=== PATIENT | female | born 2000 | race Caucasian/White ===

== ENCOUNTER → 2022-05-10 01:19 | Outpatient (CLI) | payer OTHER, SELFPAY ==
[2022-05-10 13:23] LABS: SARS-CoV-2 RNA PCR Negative
== END ==
DX: R68.89 Other general symptoms and signs (principal); Z20.822 Contact with and (suspected) exposure to COVID-19
CPT/HCPCS: C9803; U0003; U0005

== ENCOUNTER 2023-08-17 11:35 | Outpatient (CLI) | payer OTHER, SELFPAY ==
[2023-08-17 13:00] LABS: Basophils Percent Auto 0.4 % (0.2-1.2); Eosinophils Absolute Auto 0.1 K/mm3 (0-0.3); Eosinophils Percent Auto 1.7 % (0-4.4); Hematocrit 41.3 % (37.0-47.0); Hemoglobin 13.9 g/dL (12.0-15.0); Immature Granulocyte Absolute 0.01 K/mm3 (0.00-0.031); Immature Granulocyte Percent A 0.2 % (0-0.5); Lymphocytes Absolute Auto 1.58 K/mm3 (0.9-3.2); Lymphocytes Percent Auto 29.3 % (18.3-44.2); Mean Corpuscular HGB Conc 33.7 g/dl (32-36); Mean Corpuscular Hemoglobin 29.7 pg (26-34); Mean Corpuscular Volume 88.2 fl (80-100); Mean Platelet Volume 11.6 fl (7.4-10.4); Monocytes Absolute Auto 0.3 K/mm3 (0.1-0.6); Monocytes Percent Auto 6.1 % (2.6-8.5); Neutrophils Absolute Auto 3.4 K/mm3 (1.3-6.7); Neutrophils Percent Auto 62.3 % (45.5-73.1); Platelet Count Result 222 k/mm3 (150-375); Red Blood Count 4.68 M/mm3 (4.2-5.4); Red Cell Distribution Width 11.9 % (11.5-14.5); White Blood Count 5.4 K/mm3 (4.5-10.0)
[2023-08-17 13:12] LABS: Alanine Aminotransferase 13 U/L (6-35); Albumin Level 4.7 g/dL (3.5-5.1); Alkaline Phosphatase 65 U/L (38-126); Anion Gap 7 mmol/L (8-16); Aspartate Amino Transferase 22 U/L (14-36); Bilirubin,Total 0.6 mg/dL (0.2-1.3); Blood Urea Nitrogen 19 mg/dL (7-17); Carbon Dioxide 27 mmol/L (22-30); Chloride 102 mmol/L (98-107); Cholesterol 181 mg/dL (0-200); Estimated Glomerular Filt Rate > 60; Glucose 79 mg/dL (65-110); HDL Direct 59 mg/dL; Potassium 4.3 mmol/L (3.4-5.0); Sodium 136 mmol/L (137-145); Triglycerides 59 mg/dL (<150)
[2023-08-17 13:22] LABS: LDL Cholesterol Direct 93 mg/dL
[2023-08-17 13:48] LABS: Thyroid Stimulating Hormone Reflex 0.443 uIU/mL (0.465-4.68)
[2023-08-17 19:06] LABS: Free T4 Free Thyroxine Reflex 1.23 ng/dL (0.78-2.19)
[2023-08-17 20:01] LABS: Total Triiodothyronine (T3) 1.24 NG/ML (0.97-1.69)
== END 2023-08-17 11:36 | disposition home or self-care (01) ==
PROVIDERS: PCP Nurse Practitioner; Visit Provider Nurse Practitioner
DX: Z13.29 Encounter for screening for other suspected endocrine disorder (principal); Z13.228 Encounter for screening for other metabolic disorders; Z13.0 Encounter for screening for diseases of the blood and blood-forming organs and certain disorders involving the immune mechanism; Z13.220 Encounter for screening for lipoid disorders
CPT/HCPCS: 36415; 80053; 80061; 84439; 84443; 84480; 85025

== ENCOUNTER 2023-11-24 10:36 | Outpatient (CLI) | payer OTHER, SELFPAY ==
[2023-11-24 11:52] LABS: Thyroid Stimulating Hormone Reflex 0.334 uIU/mL (0.465-4.68)
[2023-11-24 12:34] LABS: Free T4 Free Thyroxine Reflex 1.19 ng/dL (0.78-2.19)
[2023-11-24 14:02] LABS: Total Triiodothyronine (T3) 1.27 NG/ML (0.97-1.69)
[2023-11-27 05:04] LABS: Thyroid Peroxidase Antibodies <1 IU/mL (<9)
== END 2023-11-24 10:37 | disposition home or self-care (01) ==
LOC: ANHLAB 10:39
PROVIDERS: PCP Nurse Practitioner; Visit Provider Nurse Practitioner
DX: R94.6 Abnormal results of thyroid function studies (principal)
CPT/HCPCS: 36415; 84439; 84443; 84480; 86376

== ENCOUNTER 2023-12-04 10:55 | Outpatient (CLI) | payer OTHER, SELFPAY ==
--- NOTE | ~2023-12-04 | US_ITS ---
Thyroid ultrasound. Clinical History: Subclinical hyperthyroidism Findings: Real-time sonography of the thyroid gland was performed. The right lobe measures 5.1 x 1.6 x 1.9 cm. The left lobe measures 5.1 x 1.2 x 1.8 cm. The isthmus is 4 mm in AP diameter. There are several scattered cystic nodules bilaterally, largest at the left lower pole measuring 8 mm in maximum diameter. Impression: Subcentimeter cystic nodules bilaterally, benign.. Reviewed, dictated and finalized at location M. ETING INSTRUCTOR Impression: Subcentimeter cystic nodules bilaterally, benign..
== END 2023-12-04 10:56 | disposition home or self-care (01) ==
PROVIDERS: PCP Nurse Practitioner; Visit Provider Nurse Practitioner
DX: E04.2 Nontoxic multinodular goiter (principal); E05.90 Thyrotoxicosis, unspecified without thyrotoxic crisis or storm
CPT/HCPCS: 76536

== ENCOUNTER 2023-12-05 10:19 | Outpatient (CLI) | payer OTHER, SELFPAY ==
[2023-12-07 04:01] LABS: Thyroglobulin 19.5 ng/mL (2.8-40.9); Thyroglobulin Antibodies <1 IU/mL (<=1)
[2023-12-07 12:57] LABS: Thyrotropin Receptor Antibody <1.00 IU/L (<=2.00)
[2023-12-08 15:55] LABS: Thyroxin Binding Globulin 19.8 mcg/mL (13.5-30.9)
== END 2023-12-05 10:20 | disposition home or self-care (01) ==
LOC: ANHLAB 10:23
PROVIDERS: PCP Nurse Practitioner; Visit Provider Nurse Practitioner
DX: E05.90 Thyrotoxicosis, unspecified without thyrotoxic crisis or storm (principal)
CPT/HCPCS: 36415; 83519; 84432; 84442; 86800

== ENCOUNTER 2024-03-25 11:37 | Outpatient (CLI) | payer OTHER, SELFPAY ==
[2024-03-25 13:06] LABS: Thyroid Stimulating Hormone 0.962 uIU/mL (0.465-4.680)
[2024-03-25 13:12] LABS: Free T4 Free Thyroxine 1.23 ng/mL (0.78-2.19)
[2024-03-26 10:43] LABS: Triiodothyronine T3 Free 3.2 pg/mL (2.3-4.2)
== END 2024-03-25 11:38 | disposition home or self-care (01) ==
PROVIDERS: PCP Nurse Practitioner; Visit Provider Nurse Practitioner
DX: E05.90 Thyrotoxicosis, unspecified without thyrotoxic crisis or storm (principal)
CPT/HCPCS: 36415; 84439; 84443; 84481

== ENCOUNTER 2024-05-22 14:36 | Outpatient (CLI) | payer OTHER, SELFPAY ==
[2024-05-22 15:25] LABS: Basophils Percent Auto 0.4 % (0.2-1.2); Eosinophils Absolute Auto 0.1 K/mm3 (0-0.3); Eosinophils Percent Auto 2.5 % (0-4.4); Hematocrit 37.5 % (37.0-47.0); Hemoglobin 13.2 g/dL (12.0-15.0); Immature Granulocyte Absolute 0.01 K/mm3 (0.00-0.031); Immature Granulocyte Percent A 0.2 % (0-0.5); Lymphocytes Absolute Auto 2.03 K/mm3 (0.9-3.2); Lymphocytes Percent Auto 39.8 % (18.3-44.2); Mean Corpuscular HGB Conc 35.2 g/dl (32-36); Mean Corpuscular Hemoglobin 30.2 pg (26-34); Mean Corpuscular Volume 85.8 fl (80-100); Mean Platelet Volume 11.4 fl (7.4-10.4); Monocytes Absolute Auto 0.3 K/mm3 (0.1-0.6); Monocytes Percent Auto 5.3 % (2.6-8.5); Neutrophils Absolute Auto 2.6 K/mm3 (1.3-6.7); Neutrophils Percent Auto 51.8 % (45.5-73.1); Platelet Count Result 233 k/mm3 (150-375); Red Blood Count 4.37 M/mm3 (4.2-5.4); Red Cell Distribution Width 12.3 % (11.5-14.5); White Blood Count 5.1 K/mm3 (4.5-10.0)
[2024-05-22 15:37] LABS: Alanine Aminotransferase 11 U/L (6-35); Albumin Level 4.6 g/dL (3.5-5.1); Alkaline Phosphatase 59 U/L (38-126); Anion Gap 8 mmol/L (4-12); Aspartate Amino Transferase 20 U/L (14-36); Bilirubin,Total 0.7 mg/dL (0.2-1.3); Blood Urea Nitrogen 12 mg/dL (7-17); Calcium 9.4 mg/dL (8.4-10.2); Carbon Dioxide 28 mmol/L (22-30); Chloride 103 mmol/L (98-107); Cholesterol 150 mg/dL (0-200); Estimated Glomerular Filt Rate > 60; Glucose 100 mg/dL (65-110); HDL Direct 54 mg/dL; Potassium 4.3 mmol/L (3.4-5.0); Sodium 139 mmol/L (137-145); Triglycerides 79 mg/dL (<150)
[2024-05-22 15:47] LABS: LDL Cholesterol Direct 85 mg/dL
[2024-05-22 16:26] LABS: Thyroid Stimulating Hormone Reflex 0.702 uIU/mL (0.465-4.68)
== END 2024-05-22 14:37 | disposition home or self-care (01) ==
LOC: ANHLAB 14:38
PROVIDERS: PCP Nurse Practitioner; Visit Provider Nurse Practitioner
DX: Z13.220 Encounter for screening for lipoid disorders (principal); Z13.29 Encounter for screening for other suspected endocrine disorder; Z13.0 Encounter for screening for diseases of the blood and blood-forming organs and certain disorders involving the immune mechanism
CPT/HCPCS: 36415; 80053; 80061; 84443; 85025

== ENCOUNTER 2024-07-02 14:19 | Outpatient (CLI) | payer OTHER, MEDICAID, SELFPAY ==
--- NOTE | ~2024-07-02 | NM_ITS ---
EXAMINATION: NM thyroid scan w uptake DATE: 07/03/2024 14:53 INDICATION: Subclinical hyperthyroidism. COMPARISON: Thyroid ultrasound 12/04/2023 TECHNIQUE: 0.344 mCi I-123 was administered orally. Scintigraphic images of the thyroid gland were o btained at 24 hours. Thyroid uptake was calculated by the technologist. FINDINGS: The thyroid uptake is 29% (normal 10-30%), with the right lobe measuring 16% uptake and the left 14%. There is no focal area of decreased or increased activity to suggest hypofunctioning or hyperfunctio kisha nodule. IMPRESSION: 1. Normal thyroid scintigraphy and 24-hour iodine uptake. Reviewed, dictated and finalized at location A.
[2024-07-04 07:58] LABS: Thyroid Peroxidase Antibodies <1 IU/mL (<9)
[2024-07-09 07:39] LABS: Thyroid Stimulating Immunoglob <89%
[2024-07-10 07:17] LABS: Thyrotropin Receptor Antibody <1.00
== END 2024-07-02 14:20 | disposition home or self-care (01) ==
LOC: ANHIMG 14:21
PROVIDERS: PCP Nurse Practitioner; Visit Provider Internal Medicine
DX: R79.89 Other specified abnormal findings of blood chemistry (principal); I49.9 Cardiac arrhythmia, unspecified; F32.A Depression, unspecified; F41.9 Anxiety disorder, unspecified
CPT/HCPCS: 36415; 78014; 83519; 84445; 86376; 86800; A9516

== ENCOUNTER 2024-08-02 09:09 | Outpatient (CLI) | payer OTHER, SELFPAY ==
--- NOTE | ~2024-08-02 | CT_ITS ---
EXAMINATION: CT thoracic lumbar wo con DATE: 08/02/2024 09:34 INDICATION: Congenital scoliosis. TECHNIQUE: Computed tomography (CT) of the thoracic and lumbar spine was performed without intravenou s contrast. Automated exposure control and iterative reconstruction technique were employed. The dose -length product was 731.84 mGy-cm. COMPARISON: spine CT 10/07/2014 FINDINGS: CT THORACIC SPINE: There is 38 degrees levoscoliosis of thoracolumbar spine. There is mild chronic an terior wedging of T7-T9 vertebral bodies. There is severely decreased disc height at T11-T12. There a re changes of posterior fusion procedure from T12 to L4. There are lucencies around the left T12 scre w and the left L4 screw. There is multilevel mild facet joint osteoarthritis. At T11-T12, there is se rodrigo bilateral facet joint osteoarthritis. There is mild bilateral neural foraminal stenosis at T11-T 12. There is mild central canal stenosis at T11-T12. CT LUMBAR SPINE: Vertebral body heights are normal. There is mildly decreased disc height at L1-L2 an d moderately decreased disc height at L2-L3. The following disc levels are specifically discussed: L1-L2: The disc does not extend beyond the endplate margin. There is no facet joint hypertrophy. Ther e is no neural foraminal stenosis. There is no central canal stenosis. L2-L3: The disc does not extend beyond the endplate margin. There is no facet joint hypertrophy. Ther e is no neural foraminal stenosis. There is no central canal stenosis. L3-L4: The disc does not extend beyond the endplate margin. There is severe bilateral facet joint ost eoarthritis. There is mild left neural foraminal stenosis. There is no central canal stenosis. L4-L5: The disc is bulging. There is mild bilateral facet joint osteoarthritis. There is mild bilater al neural foraminal stenosis. There is no central canal stenosis. L5-S1: The disc is bulging. There is severe bilateral facet joint osteoarthritis. There is mild bilat eral neural foraminal stenosis. There is mild central canal stenosis. IMPRESSION: 1. Posterior fusion procedure from T12 to L4 with lucencies around the left T12 screw and left L4 scr ew, consistent with loosening. 2. Thoracolumbar levoscoliosis. 3. Severe spondylosis at T11-T12 and mild spondylosis at other levels. Reviewed, dictated and finalized at location A. IMPRESSION: 1. Posterior fusion procedure from T12 to L4 with lucencies around the left T12 screw and left L4 screw, consistent with loosening. 2. Thoracolumbar levoscoliosis. 3. Severe spondylosis at T11-T12 and mild spondylosis at other levels.
== END 2024-08-02 09:10 | disposition home or self-care (01) ==
PROVIDERS: PCP Nurse Practitioner; Visit Provider Nurse Practitioner
DX: M41.85 Other forms of scoliosis, thoracolumbar region (principal); M43.04 Spondylolysis, thoracic region; G89.29 Other chronic pain; Z98.1 Arthrodesis status
CPT/HCPCS: 72128; 72131

== ENCOUNTER 2024-08-14 10:47 | Outpatient (CLI) | payer OTHER, SELFPAY ==
--- NOTE | ~2024-08-14 | CT_ITS ---
EXAMINATION: CT thoracic lumbar wo con DATE: 08/14/2024 11:07 INDICATION: Congenital scoliosis post fall TECHNIQUE: Computed tomography (CT) of the thoracic and lumbar spine was performed without intravenou s contrast. Automated exposure control and iterative reconstruction technique were employed. The dose -length product was 830.58 mGy-cm. COMPARISON: 08/02/2024 FINDINGS: Thoracic spine: 25 degree lower thoracic dextroscoliosis sagittal alignment is normal. Unchanged minimal anterior wed ging at T7 and T8. No acute fractures. Mild left anterior vertebral body height loss at T11 and T12. Moderate anterior disc height loss with degenerative endplate changes at T11-T12. No central canal or neural foraminal stenosis. Severe facet osteoarthritis with mild neural foraminal stenosis on the le ft at T11-T12. Moderate facet osteoarthritis on the right at T11-T12 and on the left at T10-T11. Mild facet osteoarthritis at majority the remaining thoracic levels. No other significant neural foramina l stenosis. Visualized portions of the lungs are clear. Paravertebral soft tissues are unremarkable. Lumbar spine: 40 degrees levoscoliosis measured between L1 and L4. Sagittal alignment is normal. No acute fracture. Partial T11 laminectomy and laminectomies at T12, L1 and L2 with T12-L4 posterior spinal fusion with bilateral vertical iker and pedicle screw fixation at each level with the exception of L2. Unchanged mild lucency surrounding the left T12 and left L4 screws. Vertebral body heights are normal. Right-si ded wedging of the L2 and L3 vertebral bodies which is likely developmental related to the scoliosis. The left side of the L2 vertebral body appears enlarged with suggestion of a partially duplicated le ft-sided pedicle which is also likely developmental. There is severe osteoarthritis at the still unfu sed bilateral L3-L4 facet joints. There is mild bilateral facet osteoarthritis at L4-5 and L5-S1. The re is no central canal stenosis. There is unchanged mild neural foraminal stenosis on the left at L3- L4 and mild bilateral neural foraminal stenosis at L4-5 and L5-S1. Mild bilateral sacral erect osteoa rthritis. Paravertebral soft tissues are unremarkable. IMPRESSION: 1. 40 degrees thoracolumbar levoscoliosis with 25 degrees compensatory lower thoracic dextro scoliosi s. 2. Thoracolumbar spondylosis, moderate at T11-T12 and otherwise mild with instrumented T12-L4 posteri or spinal fusion with unchanged lucency around the left T12 and left L4 screws consistent with loosen ing. No acute osseous abnormality. Reviewed, dictated and finalized at location A. IMPRESSION: 1. 40 degrees thoracolumbar levoscoliosis with 25 degrees compensatory lower th oracic dextro scoliosis. 2. Thoracolumbar spondylosis, moderate at T11-T12 and otherwise mild with instr umented T12-L4 posterior spinal fusion with unchanged lucency around the left T 12 and left L4 screws consistent with loosening. No acute osseous abnormality.
== END 2024-08-14 10:48 | disposition home or self-care (01) ==
LOC: ANHIMG 10:48
PROVIDERS: PCP Nurse Practitioner; Visit Provider Nurse Practitioner
DX: M41.85 Other forms of scoliosis, thoracolumbar region (principal); M41.84 Other forms of scoliosis, thoracic region; W19.XXXA Unspecified fall, initial encounter; Z98.1 Arthrodesis status
CPT/HCPCS: 72128; 72131

== ENCOUNTER 2024-12-12 15:13 | Outpatient (CLI) | payer OTHER, SELFPAY ==
[2024-12-12 16:14] LABS: Basophils Percent Auto 0.2 % (0.2-1.2); Eosinophils Absolute Auto 0.1 K/mm3 (0-0.3); Eosinophils Percent Auto 0.6 % (0-4.4); Hematocrit 39.4 % (37.0-47.0); Hemoglobin 13.4 g/dL (12.0-15.0); Immature Granulocyte Absolute 0.04 K/mm3 (0.00-0.031); Immature Granulocyte Percent A 0.4 % (0-0.5); Lymphocytes Absolute Auto 2.03 K/mm3 (0.9-3.2); Lymphocytes Percent Auto 19.1 % (18.3-44.2); Mean Corpuscular Hemoglobin 29.3 pg (26-34); Mean Platelet Volume 12.1 fl (7.4-10.4); Monocytes Absolute Auto 0.5 K/mm3 (0.1-0.6); Monocytes Percent Auto 4.6 % (2.6-8.5); Neutrophils Percent Auto 75.1 % (45.5-73.1); Platelet Count Result 233 k/mm3 (150-375); Red Blood Count 4.58 M/mm3 (4.2-5.4); Red Cell Distribution Width 13.1 % (11.5-14.5); White Blood Count 10.6 K/mm3 (4.5-10.0)
[2024-12-12 17:20] LABS: Hepatitis B Surface Antigen Negative (Negative); Rubella IgG Antibody 18.7 IU/ML
[2024-12-12 17:30] LABS: HIV 1/2 Ab P24 Ag Result Negative (Negative)
[2024-12-13 09:11] LABS: Rapid Plasma Reagin Non-Reactive (NonReactive)
== END 2024-12-12 15:14 | disposition home or self-care (01) ==
PROVIDERS: PCP Nurse Practitioner; Visit Provider Obstetrics & Gynecology
DX: Z34.90 Encounter for supervision of normal pregnancy, unspecified, unspecified trimester (principal)
CPT/HCPCS: 36415; 85025; 86592; 86703; 86762; 86850; 86900; 86901; 87340; G0432

== ENCOUNTER 2025-02-17 15:19 | Outpatient (CLI) | payer OTHER, SELFPAY ==
--- NOTE | ~2025-02-17 | US_ITS ---
EXAMINATION: US OB /maternal detail DATE: 02/18/2025 0:47 CDT INDICATION: Approximately 20 week gestation TECHNIQUE: Real-time transabdominal obstetric ultrasound. FINDINGS: 1 There is a single intrauterine gestation in vertex presentation. The placenta is anterior without previa (5.1 cm from the tip of the placenta to the cervix). cardiac activity and movement is noted with a heart rate of 144 beats per minute. Anatomic parameters are as follows The bladder is visualized and is unremarkable. A three-vessel cord is present. Cord inserts on the midline. Bilateral kidneys are present without hydronephrosis. The anterior and posterior margins of the diaphragm are continuous. The cervical, thoracic and lumbar spines are covered in their entirety. choroid plexi are visualized, and unremarkable. Lateral ventricles are visualized and are unremarkable. The falx is visualized. The cerebellum is visualized, and is sonographically unremarkable. The cisterna magna is poorly visualized, inadequate for measurement. The nuchal fold is poorly visualized, inadequate for measurement. Cine of the four-chamber heart is visualized and is anatomic. Both the right and left ventricular outflow tracts are poorly identified, inadequate for comment. Limited views of the arms, hands, legs and feet were performed and appear grossly unremarkable. Excellent views of the upper lip and nose, confirming their continuity. The following biometric data were obtained: Biparietal diameter (BPD): 4.7 cm; head circumference (HC): 17.8 cm; abdominal circumference (AC): 14.8 cm; femur length (FL): 3.4 cm. These measurements are concordant. Estimated weight is 342.9 g +/- 51.4 g, which correlates with the 83rd percentile when is used as estimated date of delivery. As single measurements, these parameters are each equal to the following estimated gestational ages: BPD: 20 weeks 2 days. HC: 20 weeks 2 days. AC: 20 weeks 0 days. FL: 20 weeks 4 days. estimated gestational age based solely on measurements from this exam is 20 weeks 2 days +/- 1 week 3 days. IMPRESSION: Single intrauterine gestation with an approximate gestational age of 20 weeks and 2 days. Estimated d ue date by ultrasound is 07/05/2025. The cisterna magna is poorly visualized, inadequate for measurement. The nuchal fold is poorly visualized, inadequate for measurement. Both the right and left ventricular outflow tracts are poorly identified, inadequate for comment. Remaining portions of the anatomy scan are unremarkable, and within normal limits Reviewed, dictated and finalized at location A. IMPRESSION: Single intrauterine gestation with an approximate gestational age of 20 weeks a nd 2 days. Estimated due date by ultrasound is 07/05/2025. The cisterna magna is poorly visualized, inadequate for measurement. The nuchal fold is poorly visualized, inadequate for measurement. Both the right and left ventricular outflow tracts are poorly identified, ricardo dequate for comment. Remaining portions of the anatomy scan are unremarkable, and within normal limi ts
== END 2025-02-17 15:20 | disposition home or self-care (01) ==
PROVIDERS: PCP Nurse Practitioner; Visit Provider Obstetrics & Gynecology
DX: Z36.89 Encounter for other specified antenatal screening (principal)
CPT/HCPCS: 76805

== ENCOUNTER 2025-03-21 09:49 | Outpatient (CLI) | payer OTHER, SELFPAY ==
--- NOTE | ~2025-03-21 | US_ITS ---
EXAMINATION: US OB follow up DATE: 03/21/2025 12:06 INDICATION: survey TECHNIQUE: Multiple obstetric sonographic images performed. FINDINGS: Ultrasound dated 02/17/2025 There is a single living fetus in vertex presentation. The placenta is anterior without placenta pre via. Amniotic fluid volume is subjectively normal cardiac activity and movement is noted with a heart rate of 146 beats per minute. The following anatomy was identified as normal: Left ventricular outflow tract, cisterna magna, nuchal fold and four-chamber heart. The right ventric ular outflow tract is suboptimally visualized. The following biometric data were obtained: BPD: 61mm corresponds to gestational age 24 weeks 6 days. Head circumference: 230 mm corresponds to gestational age 25 weeks 0 days. Abdominal circumference: 207 mm corresponds to gestational age 25 weeks 2 days. Femur length: 45 mm corresponds to gestational age 24 weeks 5 days. Head circumference to abdominal circumference ratio: 1.11 (normal range for expected gestational age is 1.04-1.22). Estimated weight: 759 grams +/- 114 grams using Hadlock method, 80.1%. IMPRESSION: 1: Single living intrauterine with an estimated gestational age of 24weeks 6days by initial ultrasound measurements, with an EDC of 07/05/2025 in vertex presentation. 2. Unremarkable limited survey. Right ventricular outflow tract suboptimally visualized. Reviewed, dictated and finalized at location A. IMPRESSION: 1: Single living intrauterine with an estimated gestational age of 24 weeks 6days by initial ultrasound measurements, with an EDC of 07/05/2025 in baltazar gabriel presentation. 2. Unremarkable limited survey. Right ventricular outflow tract suboptim ally visualized.
== END 2025-03-21 09:50 | disposition home or self-care (01) ==
PROVIDERS: PCP Nurse Practitioner; Visit Provider Obstetrics & Gynecology
DX: Z36.3 Encounter for antenatal screening for malformations (principal); Z3A.00 Weeks of gestation of pregnancy not specified
CPT/HCPCS: 76816

== ENCOUNTER 2025-04-16 09:48 | Outpatient (RCR) | payer OTHER, SELFPAY ==
[2025-04-16 11:36] LABS: Hematocrit 34.2 % (37.0-47.0); Hemoglobin 11.2 g/dL (12.0-15.0)
[2025-04-16 11:51] LABS: Glucose 1 Hour PP 50gm Dose 101 mg/dL
[2025-04-16 12:22] LABS: Syphilis IgG/IgM Antibody Negative (Negative)
[2025-04-16 12:28] LABS: HIV 1/2 Ab P24 Ag Result Negative (Negative)
[2025-04-16] MEDS: RHO(D) IMMUNE GLOBULIN 300 MCG/2 ML SYRINGE IM (17:14)
== END 2025-07-15 23:59 | disposition home or self-care (01) ==
LOC: ANHLAB 09:48
PROVIDERS: PCP Nurse Practitioner; Visit Provider Obstetrics & Gynecology
DX: Z11.4 Encounter for screening for human immunodeficiency virus [HIV] (principal); Z11.3 Encounter for screening for infections with a predominantly sexual mode of transmission; Z29.13 Encounter for prophylactic Rho(D) immune globulin; O36.0130 Maternal care for anti-D [Rh] antibodies, third trimester, not applicable or unspecified; Z3A.40 40 weeks gestation of pregnancy
CPT/HCPCS: 36415; 82947; 85014; 85018; 85461; 86593; 86703; 86850; 86900; 86901; 90384; 96372; G0432; J2790

== ENCOUNTER 2025-04-16 15:52 | Outpatient (CLI) | payer OTHER, SELFPAY ==
--- NOTE | ~2025-04-16 | US_ITS ---
EXAM EXAMINATION: US OB follow up DATE: 04/17/2025 8:15 CDT INDICATION: Follow-up anatomy scan imaging COMPARISON: 03/21/2025 and 02/17/2025 TECHNIQUE: Real-time transabdominal obstetric ultrasound. FINDINGS: 1 para 0 There is a single intrauterine gestation in vertex presentation. The placenta is anterior, without placenta previa cardiac activity and movement is noted with a heart rate of 158 beats per minute. Amniotic fluid index measures 19.7 cm (within normal limits for a gestation of this age). Cine views of the four-chambered heart is visualized with excellent demonstration of the left ventric ular outflow tract as well as the right ventricular outflow tract. Both are anatomic, within normal limits. In addition, the anterior margin of the diaphragm is delineated as continuous. The following biometric data were obtained: Biparietal diameter (BPD): 6.9 cm; head circumference (HC): 25.6 cm; abdominal circumference (AC): 23.5 cm; femur length (FL): 5.1 cm. These measurements are concordant. Estimated weight is 1101 g +/- 165 g, which correlates with the 28th percentile when 07/11/2025 is used as estimated date of delivery. As single measurements, these parameters are each equal to the following estimated gestational ages: BPD: 27 weeks 6 days. HC: 27 weeks 6 days. AC: 27 weeks 6 days. FL: 27 weeks 2 days. estimated gestational age based solely on measurements from this exam is 27 weeks 5 days +/- 2 weeks 0 days. IMPRESSION: Single intrauterine gestation in vertex presentation with cardiac activity identified. Both the left ventricular outflow tract in the right ventricular outflow tract are anatomic and withi n normal limits. This concludes the evaluation of the cox components of this patient's anatomy scan which is within no rmal limits. Approximate gestational age based on this examination is 27 weeks and 5 days with an estimated date o f delivery by ultrasound of 07/11/2025. Reviewed, dictated and finalized at location A. IMPRESSION: Single intrauterine gestation in vertex presentation with cardiac activit y identified. Both the left ventricular outflow tract in the right ventricular outflow tract are anatomic and within normal limits. This concludes the evaluation of the cox components of this patient's anatomy s can which is within normal limits. Approximate gestational age based on this examination is 27 weeks and 5 days wi th an estimated date of delivery by ultrasound of 07/11/2025.
== END 2025-04-16 15:53 | disposition home or self-care (01) ==
LOC: MICIMG 15:53
PROVIDERS: PCP Nurse Practitioner; Visit Provider Obstetrics & Gynecology
DX: Z36.3 Encounter for antenatal screening for malformations (principal)
CPT/HCPCS: 76816

== ENCOUNTER 2025-05-04 21:15 | Emergency (ER) | payer OTHER, SELFPAY ==
[2025-05-04 21:18] VITALS: BP 153/94; PULSE 119; RESP 20; TEMP 36.4; O2SAT 100
--- NOTE | 2025-05-04 21:35 | ED_ITS ---
HPI - Extremity Injury (Lower) General Chief Complaint: Extremity Injury, Lower Stated Complaint: R knee pain s/p fall, 30weeks preg Time Seen by Provider: 05/04/25 21:23 History of Present Illness HPI Narrative: 25F @30wk slipped on water and fell, landing on R knee and R side, knee cap dislocated/reduced on own but she is having persistent pain especially with movement. Still having good mvmt, no VB or significant abd/back pain. Related Data Allergies Allergy/AdvReac Type Severity Reaction Status Date / Time No Known Allergies Allergy Unknown Verified 05/04/25 21:21 Review of Systems Review of Systems: All systems reviewed & are unremarkable except as noted in HPI and below PMFSH Past Medical History Medical History Anxiety Depression Irregular heart beat Spinal fusion, congenital Family History Family History Father Hypertension Social History Social History Smoking status: Never smoker Alcohol intake: never Substance use: never Exam Narrative: EXAMINATION OF ORGAN SYSTEMS/BODY AREAS: Constitutional: Vital signs per nursing GENERAL:[No acute distress, non-toxic appearing.] HEAD: Normal with no signs of head trauma. EYES: EOMI, conjunctiva normal ENT: Hearing grossly intact LUNGS: Nonlabored breathing. HEART: [Regular rate and rhythm], strong right DP pulse and popliteal pulse ABD: [Soft], [nontender to palpation], gravid EXT: Normal range of motion, slight swelling to right knee without significant tenderness, no deformity SKIN: [No rashes or lesions.] NEURO: [Alert and oriented x 3. No gross focal sensory or strength deficits.] PSYCH: Normal affect Course Vital Signs Vital signs: Vital Signs Temperature 97.6 F 05/04/25 21:18 Pulse Rate 119 H 05/04/25 21:18 Respiratory Rate 20 05/04/25 21:18 Blood Pressure 153/94 H 05/04/25 21:18 Pulse Oximetry 100 05/04/25 21:18 Oxygen Delivery Room Air 05/04/25 21:18 Temperature 97.6 F 05/04/25 21:18 Pulse Rate 92 05/04/25 22:26 Respiratory Rate 20 05/04/25 21:18 Blood Pressure 137/65 05/04/25 22:26 Pulse Oximetry 100 05/04/25 21:18 Oxygen Delivery Room Air 05/04/25 21:18 MDM - Extremity Injury (Lower) MDM Narrative Medical decision making narrative: 25-year-old female at 30 weeks presenting with mechanical fall landing on her right side and right knee, she mostly has pain only with movement of her right knee, there is no obvious deformity, knee cap in place, she has normal range of motion, she has good popliteal and DP pulses, so I have very low concern for severe injury including vascular injury or acute osseous injury, and she has been bearing weight, with shared decision-making she would prefer to avoid x-ray at this time which I agree with. I have discussed this case with her OBGYN, who recommends an NST at this time, this is performed and is extremely reassuring. She also already had her RhoGAM shot and per her OB, does not require another 1 today. 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 Discharge Plan Discharge Clinical Impression: Injury of knee, Fall Patient Disposition: Home Condition: Stable Instructions: Knee Pain (ED) Additional Instructions: Please follow-up with your OB in the next 2-3 days, continue with knee immobilizer, and you can follow-up with orthopedics as needed. You can always return to the emergency room for any further issues especially if you notice any severe abdominal pain or bleeding. Patient Language: Senegalese Prescriptions: No Action atomoxetine [Strattera] 80 mg capsule 80 mg PO DAILY Qty: 90 0RF escitalopram oxalate [Lexapro] 20 mg tablet 20 mg PO DAILY Qty: 90 0RF bupropion HCl [Wellbutrin SR] 150 mg tablet sustained-release 12 hr 150 mg PO DAILY Qty: 90 0RF trazodone 100 mg tablet 100 mg PO QHS PRN (Reason: sleep) Qty: 90 0RF Follow-up/Referrals: Boo Liao MD [Physician] - 2 Days Hermelindo Vincent MD [Physician] - 2 Days Esme,ANNY Spear [Primary Care Provider] - Stand Alone Forms: Work/School Release IP
[2025-05-04] MEDS: oxyCODONE HCL (*CRX) 5 MG TAB IR PO (21:40)
[2025-05-04] MEDS: NIFEdipine 30 MG TAB.ER.24 PO (22:07)
[2025-05-04 22:26] VITALS: BP 137/65; PULSE 92
== END 2025-05-04 22:58 | disposition home or self-care (01) ==
PROVIDERS: Emergency Provider Emergency Medicine; PCP Nurse Practitioner
DX: O9A.213 Injury, poisoning and certain other consequences of external causes complicating pregnancy, third trimester (principal); S89.91XA Unspecified injury of right lower leg, initial encounter; O99.343 Other mental disorders complicating pregnancy, third trimester; F41.9 Anxiety disorder, unspecified; F32.A Depression, unspecified; O99.891 Other specified diseases and conditions complicating pregnancy; Q76.49 Other congenital malformations of spine, not associated with scoliosis; Z3A.30 30 weeks gestation of pregnancy; W01.0XXA Fall on same level from slipping, tripping and stumbling without subsequent striking against object, initial encounter
CPT/HCPCS: 99283; A9270

== ENCOUNTER 2025-06-07 11:18 | Outpatient (CLI) | payer OTHER, SELFPAY ==
--- NOTE | ~2025-06-07 | US_ITS ---
EXAMINATION: US OB follow up DATE: 06/07/2025 11:45 INDICATION: Chronic hypertension TECHNIQUE: Real-time transabdominal obstetric ultrasound. FINDINGS: Comparison to multiple prior studies sequentially, with oldest reviewed study dated 025. There is a single living fetus in vertex presentation. The placenta is anterior without placenta pre via. cardiac activity and movement is noted with a heart rate of 143 beats per minute. T he amniotic fluid volume is normal. CHER measures 13.8 cm The following biometric data were obtained: BPD: 89mm corresponds to gestational age 35 weeks 6 days. Head circumference: 325mm corresponds to gestational age 36 weeks 6 days. Abdominal circumference: 313mm corresponds to gestational age 35 weeks 2 days. Femur length: 68mm corresponds to gestational age 35 weeks 0 days. Estimated weight: 2681grams +/- 402 g, 52.7%.] IMPRESSION: 1. Single living intrauterine in vertex presentation with an estimated gestational age of 36 weeks 0 days by inititial ultrasound. Appropriate interval growth. 2. Normal placenta. Reviewed, dictated and finalized at location A. IMPRESSION: 1. Single living intrauterine in vertex presentation with an estimat ed gestational age of 36 weeks 0 days by inititial ultrasound. Appropriate int erval growth. 2. Normal placenta.
== END 2025-06-07 11:19 | disposition home or self-care (01) ==
LOC: MICIMG 11:19
PROVIDERS: PCP Nurse Practitioner; Visit Provider Obstetrics & Gynecology
DX: O10.919 Unspecified pre-existing hypertension complicating pregnancy, unspecified trimester (principal); Z3A.36 36 weeks gestation of pregnancy
CPT/HCPCS: 76816

== ENCOUNTER 2025-06-09 08:34 | Outpatient (CLI) | payer OTHER, SELFPAY ==
[2025-06-09] VITALS (7 sets, daily range): BP systolic 121–134; BP diastolic 67–78; PULSE 101–126; BMI 38.9
[2025-06-09 09:04] LABS: Hematocrit 36.6 % (37.0-47.0); Hemoglobin 11.8 g/dL (12.0-15.0); Immature Granulocyte Percent A 0.5 % (0-0.5); Lymphocytes Absolute Auto 1.58 K/mm3 (0.9-3.2); Mean Corpuscular HGB Conc 32.2 g/dl (32-36); Mean Corpuscular Hemoglobin 26.6 pg (26-34); Mean Corpuscular Volume 82.4 fl (80-100); Nucleated Red Blood Cells Absolute Auto 0.000 K/mm3 (0.0-0.012); Nucleated Red Blood Cells Perc 0.0 % (0.0-0.2); Platelet Count Result 204 k/mm3 (150-375); Red Blood Count 4.44 M/mm3 (4.2-5.4); White Blood Count 11.8 K/mm3 (4.5-10.0)
[2025-06-09 09:07] LABS: Add Urine Microscopic? YES; Appearance Urine Clear (Clear); Glucose Urine UA Negative (Negative); Leukocyte Esterase Ur Trace LEU/UL (Negative); Nitrate Urine Negative (Negative); Non Pathogenic Casts 0-2; Specific Grav Ur 1.020 (1.001-1.035)
[2025-06-09 09:24] LABS: Alanine Aminotransferase 26 U/L (6-35); Albumin Level 4.1 g/dL (3.5-5.1); Alkaline Phosphatase 218 U/L (38-126); Anion Gap 10 mmol/L (4-12); Aspartate Amino Transferase 30 U/L (14-36); Bilirubin,Total 0.4 mg/dL (0.2-1.3); Blood Urea Nitrogen 8 mg/dL (7-17); Calcium 9.5 mg/dL (8.4-10.2); Carbon Dioxide 19 mmol/L (22-30); Chloride 105 mmol/L (98-107); Estimated Glomerular Filt Rate > 60; Glucose 109 mg/dL (65-110); Potassium 4.4 mmol/L (3.4-5.0); Sodium 134 mmol/L (137-145); Total Protein 7.7 g/dL (6.3-8.2); Uric Acid 3.8 mg/dL (2.5-7.5)
[2025-06-09 10:01] LABS: Total Protein Urine Random 10 mg/dL; Ur Ttl Prot Creatinine Ratio 0.08 mg/mg (0-0.20)
== END 2025-06-09 10:13 | disposition home or self-care (01) ==
LOC: ANHOBOP 08:37 → ANHOBPP 08:38
PROVIDERS: PCP Nurse Practitioner; Visit Provider Obstetrics & Gynecology
DX: R03.0 Elevated blood-pressure reading, without diagnosis of hypertension (principal)
CPT/HCPCS: 36415; 59025; 80053; 81001; 82570; 84156; 84550; 85025; 99199

== ENCOUNTER 2025-06-17 15:44 | Outpatient (RCR) | payer OTHER, SELFPAY ==
[2025-06-17 17:09] VITALS: BP 128/74; PULSE 102
== END 2025-06-28 09:47 | disposition home or self-care (01) ==
LOC: ANHOBOP 15:44
PROVIDERS: PCP Nurse Practitioner; Visit Provider Obstetrics & Gynecology
DX: O16.3 Unspecified maternal hypertension, third trimester (principal); Z3A.36 36 weeks gestation of pregnancy
CPT/HCPCS: 59025

== ENCOUNTER 2025-06-21 11:18 | Outpatient (RCR) | payer OTHER, SELFPAY ==
[2025-06-21] MEDS: BETAMETHASONE SOD PHOS/ACETATE 30 MG/5 ML VIAL 12 MG IM (11:39)
[2025-06-22] MEDS: BETAMETHASONE SOD PHOS/ACETATE 30 MG/5 ML VIAL 12 MG IM (11:29)
== END 2025-09-19 23:59 | disposition home or self-care (01) ==
LOC: ANHOBOP 11:18
PROVIDERS: PCP Nurse Practitioner; Visit Provider Obstetrics & Gynecology
DX: O36.8990 Maternal care for other specified fetal problems, unspecified trimester, not applicable or unspecified (principal); Z3A.00 Weeks of gestation of pregnancy not specified
CPT/HCPCS: 96372; J0702

== ENCOUNTER 2025-06-23 11:54 | Outpatient (CLI) | payer OTHER, SELFPAY ==
[2025-06-23 12:24] LABS: Hematocrit 33.7 % (37.0-47.0); Hemoglobin 10.7 g/dL (12.0-15.0); Mean Corpuscular HGB Conc 31.8 g/dl (32-36); Mean Corpuscular Hemoglobin 25.5 pg (26-34); Mean Corpuscular Volume 80.2 fl (80-100); Platelet Count Result 230 k/mm3 (150-375); Red Blood Count 4.20 M/mm3 (4.2-5.4); White Blood Count 13.6 K/mm3 (4.5-10.0)
[2025-06-23 13:15] LABS: Syphilis IgG/IgM Antibody Non-Reactive (Nonreactive)
== END 2025-06-23 11:55 | disposition home or self-care (01) ==
PROVIDERS: PCP Nurse Practitioner; Visit Provider Obstetrics & Gynecology
DX: Z01.812 Encounter for preprocedural laboratory examination (principal)
CPT/HCPCS: 36415; 85027; 86593; 86850; 86880; 86900; 86901; 86902

== ENCOUNTER 2025-06-24 10:52 | Inpatient (IN) | payer OTHER, SELFPAY ==
[2025-06-24] VITALS (61 sets, daily range): BP systolic 101–141; BP diastolic 49–103; PULSE 48–93; RESP 14–18; TEMP 36.1–36.9; O2SAT 96–100; BMI 39.9
[2025-06-24] MEDS: ACETAMINOPHEN 500 MG TABLET 1000 MG PO ×3 (11:50→23:44)
[2025-06-24] MEDS: LACTATED RINGERS 1,000 ML 125 ML IV CONT ×2 (11:55→12:47)
--- NOTE | 2025-06-24 12:12 | PM.IMHP ---
H&P: HPI History of Present Illness Date/Time: 06/24/25 12:12 Chief Complaint: Here for c section. Narrative: 25 y/o G1 at 37w5d, here for scheduled . She has CHTN, takes ASA 81 mg daily and Procardia XL 30 mg daily. Got Rhogam. She has a history of T12-L4 fusion of spine. After a consultation with anesthesia, she has decided she'd like to have an elective primary rather than have labor. She understands there is a high chance of needing general anesthetic, though anesthesia is apparently willing to try to place a spinal. GBS pos. Bp has been increasing despite treatment. She has no headache, no visual change, no abdominal pain. As above, after careful consideration, the patient is requesting a primary delivery. Moreover, regarding timing, because of her rising blood pressure readings on an antihypertensive, we have targeted delivery between 37 and 38 weeks. She received a course of steroids over the weekend. We reviewed risks, benefits alternatives in detail. Review of Systems Review of Systems: All systems reviewed & are unremarkable except as noted in HPI and below PMFSH Past Medical History Medical History Closed dislocation of right patella Anxiety Depression Irregular heart beat Surgical History Surgical History History of spinal fusion Family History Family History Father Hypertension Mother Hypertension Grandparent Hypertension Social History Social History Smoking status: Never smoker Alcohol intake: never Substance use: never Do You Feel Safe in your Home?: Yes Lack of Transportation: No Lack of Food: Never True Current Housing: I Have Housing Concerned About Future Housing: No Difficulty Paying Gas/Electric Bills: No Difficulty Paying for Meds: No Currently Unemployed: No Education: Associate Degree Difficulty w/ Childcare or Family Care: No Spiritual care concerns: No Meds Home Medications and Allergies Home Medications ?Medication ?Instructions ?Recorded ?Confirmed ?Type aspirin 81 mg tablet 81 mg PO DAILY 05/27/25 06/24/25 History docosahexaenoic acid 200 mg 200 mg PO HS 05/27/25 06/24/25 History capsule ( DHA) nifedipine 30 mg tablet,extended 30 mg PO HS 05/27/25 06/24/25 History release Allergies Allergy/AdvReac Type Severity Reaction Status Date / Time No Known Allergies Allergy Unknown Verified 06/24/25 11:22 Vital Signs Vital Signs - 24 hr 06/24/25 12:00 06/24/25 12:01 06/24/25 12:06 Pulse Rate 89 Blood Pressure 141/85 H Pulse Oximetry 96 97 06/24/25 12:11 Pulse Rate Blood Pressure Pulse Oximetry 98 Exam Const: Orientation/consciousness: patient oriented x3 Other: Well-developed, well-nourished female in no acute distress. Neck: Thyroid: thyroid normal Lymphatic: no lymphadenopathy noted (in neck, axilla or inguinal nodes) Resp: Effort & Inspection: normal respiratory effort Auscultation: clear to auscultation bilaterally Cardio: Rate: regular rate Rhythm: regular rhythm Heart sounds: S1 normal heart sound present and S2 normal heart sound present GI: Other: ABD: Soft, nontender, nondistended, gravid. FHR auscultated. No guarding or rebound tenderness. No hepatosplenomegaly. : General: Yes no CVA tenderness Other: Deferred. Back/Spine/Pelvis: Back: no CVA tenderness Skin: General skin exam: normal color and no rashes or lesions noted Neuro: General: patient oriented x3 Extrem: Other: Extremities: nontender with no edema Psych: Mental Status: mental status grossly normal Affect: normal affect Assessment and Plan Assessment and plan (1) : Qualifiers: Weeks of gestation: 37 weeks Qualified Code(s): Z3A.37 - 37 weeks gestation of Code(s): Z34.90 - Encounter for supervision of normal , unspecified, unspecified trimester Status: Acute Assessment and Plan: A: IUP at 37 5/7 weeks, with CHTN and worsening bp control despite treatment with an antihypertensive. She also has a history of spinal fusion. She completed a course of steroids to accelerate lung maturity. P: I have offered delivery between 37-38 weeks, as above. Moreover, she opts for primary , as above. She understands risks associated with prematurity. Moreover, she understands risks of surgery to include risks of anesthesia, risks of pain, infection, bleeding, blood products, thromboembolic phenomena and damage to adjacent structures such as bowel, bladder, ureters, blood vessels and nerves. She understands all these risks and elects to proceed with surgery. (2) Chronic hypertension affecting : Code(s): O10.919 - Unspecified pre-existing hypertension complicating , unspecified trimester Status: Acute
--- NOTE | 2025-06-24 12:12 | LDADM ---
This patient, Yanira Ochoa, was admitted to Labor/Delivery/Recovery 120 on 06/24/25 at 10:52. Plans for surgery/ and pain management were discussed with patient. Patient/family oriented to hospital policies and general routines including ID bracelet, bed and alarms, visiting hours, pain management, procedures, bathroom and other care routines, personal items, smoking policy, room service/diet and guest tray routines, infant security routines, and visiting hours. Patient/Family are encouraged to report perceived risks to care and to ask questions if they do not understand what they are told or what they should do. See OBIX for further documentation.
--- NOTE | 2025-06-24 12:36 | PC.NURSE ---
Dr. Liao in to see pt. Pt and family have no further questions.
[2025-06-24] MEDS: FAMOTIDINE 20 MG/2 ML VIAL IV PUSH (12:39)
[2025-06-24] MEDS: ONDANSETRON INJ 4 MG/2 ML VIAL IV PUSH ×2 (12:39→18:26)
--- NOTE | 2025-06-24 12:40 | WPDHPUPDATE1 ---
History and Physical Update Update Date/Time: 06/24/25 12:40 History and Physical has been reviewed, including an updated exam of the patient. There are NO changes in the patient's condition. Risks, benefits, and alternatives have been discussed and questions answered. Patient agrees to proceed with procedure.
--- NOTE | 2025-06-24 12:41 | PC.NURSE ---
Dr. Sarah in to see and assess pt.
--- NOTE | 2025-06-24 12:50 | P.PNAN_ITS ---
Anes - Initial Pre Proc Eval Procedure: Operation Date: 06/24/25 13:00 Proposed Procedures p Section - Boo Liao MD Date/Time: 06/24/25 12:50 Surgeon: Boo Liao MD Pre Op Diagnosis: C/S Patient Data Age: 25 Gender: F Height: 1.65 m Weight: 109 kg Last Vital Signs Pulse 83 06/24/25 12:16 BP 135/74 06/24/25 12:16 Pulse Ox 97 06/24/25 12:16 O2 Del Method Room Air 06/24/25 12:07 Allergies Allergy/AdvReac Type Severity Reaction Status Date / Time No Known Allergies Allergy Unknown Verified 06/24/25 11:22 Home Medications ?Medication ?Instructions ?Recorded ?Confirmed ?Type aspirin 81 mg tablet 81 mg PO DAILY 05/27/25 06/24/25 History docosahexaenoic acid 200 mg 200 mg PO HS 05/27/25 06/24/25 History capsule ( DHA) nifedipine 30 mg tablet,extended 30 mg PO HS 05/27/25 06/24/25 History release Patient hx anesthesia problems: none Family hx anesthesia problems: none Results Review: All pre-operative results and documents have been reviewed as part of the pre- operative evaluation. [facility] Past Medical History Medical History Closed dislocation of right patella Anxiety Depression Irregular heart beat Surgical History Surgical History History of spinal fusion Family History Family History Father Hypertension Mother Hypertension Grandparent Hypertension Social History Social History Smoking status: Never smoker Second hand tobacco smoke exposure: No Alcohol intake: never Substance use: never Do You Feel Safe in your Home?: Yes Lack of Transportation: No Lack of Food: Never True Current Housing: I Have Housing Concerned About Future Housing: No Difficulty Paying Gas/Electric Bills: No Difficulty Paying for Meds: No Currently Unemployed: No Education: Associate Degree Difficulty w/ Childcare or Family Care: No Spiritual care concerns: No Anes - Eval Final PreProcedure Day of Procedure 06/24/25 12:50 Patient weight: morbidly obese Heart: regular rate and rhythm Lungs: clear to auscultation and normal air movement Airway: Mallampati scale class II Neurological: alert and oriented Last oral intake: >/= 8 hours ASA classification: III Emergent: no Anesthetic plan: proceed Anesthesia type and monitoring: regional spinal and standard monitoring Other findings: will attempt spinal (s/p fusion) will do general if unsuccessful Results Review: All pre-operative results and documents have been reviewed as part of the pre- operative evaluation. Informed Consent: The patient's anesthetic plan and its attendant risks and benefits were discussed with the patient/family/POA. Questions were solicited and answers provided to the satisfaction of the patient/family/POA.
[2025-06-24] MEDS: ceFAZolin 2 GM in SODIUM CHLORIDE 0.9% IV 50 ML 100 ML IVPB (12:55)
--- NOTE | 2025-06-24 13:25 | S_PTH ---
PATIENT: Yanira Ochoa LOC: [facility] U#:[id number] AGE/SX: 25/F ROOM: 280 RE06/24/[address]: Boo Liao MD : 2000 BED: 00 DIS: 06/26/2025 SPEC #: [id number] RECD: 06/25/25 14:25 STATUS: ALONSO REDontae #: [id number] ALEJANDRA: 06/24/25 13:[address]: Boo Liao DEPT: [facility] Surgical RECD BY: Joanna Beltran ENTERED: 06/25/25 14:25 SP TYPE: Surgical OTHR DR: Jennifer Victoria, MARKETING INFORMATION ANALYST Tissues: A - Placenta Procedures: Hematoxylin and Eosin Stain Gross and Microscopic Level 5
--- NOTE | 2025-06-24 13:58 | P.PCNOB_ITS ---
OB - Delivery Note Procedure Delivery date: 06/24/25 Pre-op diagnosis: Chronic Hypertension and Other (IUP at 37 5/7 weeks, CHTN, prior spinal fusion) Post-op Diagnosis: Same Induction method: None Delivery monitor: External FHT and External Uterine Procedure Performed: Primary Surgeon: Boo Liao MD Anesthesia type: Spinal Description of Procedure/Findings: Findings: Normal-appearing uterus, tubes and ovaries Techniques: The patient was taken to the operating room where she was prepared and draped in the usual sterile fashion in dorsal supine position with a leftward tilt. She received cefazolin preoperatively. Spinal anesthesia was found to be adequate. A Pfannenstiel skin incision was made and carried through to the underlying layer of the fascia. The fascia was incised in the midline and the incision was extended laterally. The fascia was dissected free of the underlying rectus muscles. The rectus muscles were in the midline. The peritoneum was identified, tented up and entered sharply. The peritoneal incision was extended superiorly and inferiorly with good visualization of the bladder. The bladder blade was placed. The vesicouterine peritoneum was identified, tented up and entered sharply. The incision was extended laterally and the bladder flap was developed. The bladder blade was replaced. The uterus was then incised sharply in a transverse fashion along the lower uterine segment. The incision was extended laterally. The infant's head was delivered atraumatically to the sterile field, followed by the body. The nose and mouth were bulb suctioned. After a delay, the cord was clamped and cut. The infant was handed off the field. Cord blood was collected. The placenta was removed manually and was passed off the field. The uterus was exteriorized and cleared of all clots and debris. The uterine incision was reapproximated using 0 Monocryl in a running, locked fashion. A second, imbricating layer of the same suture was run. Excellent hemostasis resulted as did excellent reapproximation of the normal anatomy. The uterus was returned the abdomen. The pelvis was irrigated copiously with warmed normal saline. Rigorous hemostasis was assured. The fascial layer was reapproximated using 0 Vicryl in a running fashion. The skin was closed with a running, subcuticular stitch of 4 0 Vicryl. Dermaflex was applied externally. Sponge, lap, needle and instrument counts were correct. The patient was taken to the recovery room in stable condition. The went to the nursery in stable condition. I was present and scrubbed the entire procedure. Specimen: Yes (cord blood, placenta) Estimated Blood Loss: 495 Drains: Yes (Ochoa) Packing: No Pathology: Yes (Placenta) Complications: None Condition: Stable Disposition: PACU [place] Baby Date of : 06/24/25 Time of : 13:24 Gestational Age by Date: 37 gender: Female Weight (pounds): 7 Weight (ounces): 4 presentation: vertex Placenta delivery description: Manual Removal and Normal Configuration Cord Vessel Description: 3 Vessels and Delayed Cord Clamping score one minute: 8 score five minutes: 9
--- NOTE | 2025-06-24 14:01 | P.DS_ITS ---
DS: Admitting Diagnosis Discharge Date 06/26/25 Admitting Diagnosis IUP at 37 5/7 weeks CHTN with worsening bp control History of spinal fusion DS: Discharge Diagnosis Discharge Diagnosis (1) delivery delivered: Code(s): O82 - Encounter for delivery without indication Status: Acute (2) Chronic hypertension affecting : Code(s): O10.919 - Unspecified pre-existing hypertension complicating , unspecified trimester Status: Acute OB - DS: Summary OB Procedures : NST OB Procedures Intrapartum: low cervical, transverse OB Procedures: : None Peripartum Data Procedures: Procedures Operation Date: 06/24/25 13:00 <No data on this case meets the specified criteria> Time Spent with Patient Time attestation: Total time spent providing and/or coordinating discharge services: DS: Data Data Completed and Pending Pending studies at discharge: Pending at discharge 06/24/25 13:25 Surgical [PTH] Routine Discharge Plan Discharge Attending physician on discharge: Boo Liao Discharging Clinician: Boo Liao Patient Disposition: Home Activity: may shower, may drive after 2 weeks and pelvic rest Diet: regular Wound Care Instructions: incision open to air Discharge Instructions: Call or return if temperature above 100.4? F, increased abdominal pain, increased vaginal bleeding or any new problems. Patient Language: Cameroonian Stand Alone Forms: General Discharge Information Follow-up/Referrals: Boo Liao MD [Physician] - 4 Weeks Discharge Medications: New ibuprofen 600 mg tablet 600 mg PO Q6H PRN (Reason: cramps) Qty: 30 0RF oxycodone-acetaminophen [Percocet] 5-325 mg tablet 1 - 2 tablet PO Q6H PRN (Reason: pain) Qty: 30 0RF ferrous sulfate 325 mg (65 mg iron) tablet 325 mg PO DAILY Qty: 30 0RF Continued nifedipine 30 mg tablet extended release 30 mg PO HS DHA 200 mg capsule 200 mg PO HS Discontinued aspirin 81 mg tablet 81 mg PO DAILY Date of admission: 06/24/25 10:52 Primary Care Provider: Esme,Jennifer Lopez Admitting Provider: Boo Liao Attending physician on admission: Boo Liao Condition: Stable
[2025-06-24] MEDS: OXYTOCIN 30 UNITS/NS 500 ML 30 UNITS/500 ML BAG 125 UNITS IV CONT (14:45)
[2025-06-24] MEDS: LIDOCAINE 5% PATCH 1 PATCH TRANSDERM (16:15)
--- NOTE | 2025-06-24 17:00 | PC.NURSE ---
Breast pump (Moodswing) set up due to [maternal preference to pump and bottle feed]. Instructions given on cleaning, care, usage, that there should be no pain, pumping schedule for milk production, collection, and storage of human milk. Patient measured herself for flange size and is using a 17mm insert. She was using a hand pump with the 17mm flange prenatally to collect colostrum. Patient instructed to pump for 15 minutes (which provides stimulation for adequate milk production) every 3 hours (8 times in 24 hours) 1-2 times at night.?Mother voiced understanding of the education shared along with mom/baby guide and her Spectra pump manual for additional resource information. Reported to the Primary RN.
[2025-06-24] MEDS: KETOROLAC 15 MG/ML VIAL (*BKC) IV PUSH ×2 (17:44→23:43)
[2025-06-24] MEDS: DOCUSATE SODIUM 100 MG CAPSULE PO (17:45)
[2025-06-24] MEDS: SIMETHICONE 80 MG TAB.CHEW PO (17:45)
[2025-06-25 00:32] VITALS: BP 121/59; PULSE 80; RESP 18; TEMP 36.3; O2SAT 98
[2025-06-25 04:30] VITALS: BP 126/71; PULSE 70; RESP 14; TEMP 36.7; O2SAT 98
[2025-06-25 05:45] LABS: Hematocrit 30.2 % (37.0-47.0); Hemoglobin 9.1 g/dL (12.0-15.0); Immature Granulocyte Percent A 0.6 % (0-0.5); Lymphocytes Absolute Auto 1.53 K/mm3 (0.9-3.2); Mean Corpuscular HGB Conc 30.1 g/dl (32-36); Mean Corpuscular Hemoglobin 25.9 pg (26-34); Mean Corpuscular Volume 86.0 fl (80-100); Nucleated Red Blood Cells Absolute Auto 0.000 K/mm3 (0.0-0.012); Nucleated Red Blood Cells Perc 0.0 % (0.0-0.2); Platelet Count Result 172 k/mm3 (150-375); Red Blood Count 3.51 M/mm3 (4.2-5.4); White Blood Count 11.1 K/mm3 (4.5-10.0)
[2025-06-25] MEDS: KETOROLAC 15 MG/ML VIAL (*BKC) IV PUSH (05:53)
[2025-06-25] MEDS: ACETAMINOPHEN 500 MG TABLET 1000 MG PO ×3 (05:53→19:02)
[2025-06-25] MEDS: SIMETHICONE 80 MG TAB.CHEW PO ×3 (07:25→19:02)
[2025-06-25] MEDS: DOCUSATE SODIUM 100 MG CAPSULE PO ×2 (07:25→19:01)
[2025-06-25] MEDS: MULTIVIT/MIN/PREN/FOL AC/IRON TABLET 1 TAB PO (07:25)
--- NOTE | 2025-06-25 07:55 | WPDANLDPN2 ---
Anes-Prog Note L&D Date/Time: 06/25/25 07:55 Neuro status: Neuro function grossly intact. Cardiovascular status: normal Respiratory status: normal Airway patency: baseline Mental status: baseline Post-Op hydration status: normal Vital Signs: Last Vital Signs Temp 36.7 C 06/25/25 04:30 Pulse 70 06/25/25 04:30 Resp 14 06/25/25 04:30 BP 126/71 06/25/25 04:30 Pulse Ox 98 06/25/25 04:30 O2 Del Method Room Air 06/24/25 16:30 Pain score (VAS): 0 I/O: Intake & Output 06/24/25 06/24/25 06/25/25 15:59 23:59 07:59 Intake Total 1000 200 600 Output Total 695 375 800 Balance 305 -175 -200 Post-procedural complaints: none Patient feedback: Patient satisfied with anesthetic care.
--- NOTE | 2025-06-25 08:02 | WPDANLDNPN2 ---
Anes-Prog Note L&D-Neuraxial Date/Time: 06/25/25 08:02 Patient feedback: Patient satisfied with post-operative pain management.
[2025-06-25 09:15] VITALS: BP 126/76; PULSE 82; RESP 16; TEMP 37; O2SAT 98
--- NOTE | 2025-06-25 10:18 | P.PNOB_ITS ---
OB - PN: Subj Subjective Date/time seen: 06/25/25 10:18 Narrative: Pain OK. Tolerating diet. OB - PN: Obj Data Labs 06/25/25 03:52 Labs: Laboratory Results - last 24 hr 06/25/25 03:52 WBC 11.1 H RBC 3.51 L Hgb 9.1 L Hct 30.2 L MCV 86.0 D MCH 25.9 L MCHC 30.1 L RDW 15.7 H Plt Count 172 MPV 12.4 H Immature Gran % (Auto) 0.6 H Neut % (Auto) 78.9 H Lymph % (Auto) 13.8 L Brooke % (Auto) 6.1 Eos % (Auto) 0.4 Baso % (Auto) 0.2 Lymph # (Auto) 1.53 Brooke # (Auto) 0.7 H Eos # (Auto) 0.1 Baso # (Auto) 0.0 Abs Immat Gran (auto) 0.07 H Absolute Neuts (auto) 8.8 H Absolute Nucleated RBC 0.000 Nucleated RBC % 0.0 Blood Type O Negative Antibody Screen TNP Screen Negative Baby's Blood Type O pos Baby's IZABELA Negative Doses of RhIg Required 1 OB - PN A/P Assessment and Plan (1) delivery delivered: Code(s): O82 - Encounter for delivery without indication Status: Acute Plan day: 1 Comments: A: POD#1, doing well. P: Routine care. Exam 2 Narrative: AVSS I/O OK ABD soft, nontender, fundus firm. Incision c/d/i. EXT nontender
[2025-06-25] MEDS: IBUPROFEN 600 MG TABLET PO ×2 (12:13→19:02)
[2025-06-25 12:29] VITALS: BP 123/77; PULSE 92; RESP 16; TEMP 36.7; O2SAT 99
[2025-06-25] MEDS: RHO(D) IMMUNE GLOBULIN 300 MCG/2 ML SYRINGE IM (15:18)
--- NOTE | 2025-06-25 17:40 | PC.NURSE ---
1220. Introductions were made, then consulted with patient to assess needs related to . Discussed with mother her plans to feed her and the experience so far. Mom still planning on bottle feeding and pumping. She was remeasured per her request for the correct flange size. She is using her spectra pump and reports it is going well. Resources provided for inpatient and outpatient services with the feeding sheet, mom/baby guide and name written on the communication board. Mother voiced understanding of information and will call if there is a request for assistance. Reported to the Primary RN.?
[2025-06-25 18:51] VITALS: BP 143/88; PULSE 95; RESP 17; TEMP 36.6; O2SAT 99
[2025-06-25 19:05] VITALS: PULSE 95; RESP 17; O2SAT 99
[2025-06-25] MEDS: LIDOCAINE 5% PATCH 1 PATCH TRANSDERM (19:05)
[2025-06-26] MEDS: ACETAMINOPHEN 500 MG TABLET 1000 MG PO ×2 (02:18→08:18)
[2025-06-26] MEDS: IBUPROFEN 600 MG TABLET PO ×2 (02:18→08:19)
[2025-06-26] MEDS: SIMETHICONE 80 MG TAB.CHEW PO (08:17)
[2025-06-26] MEDS: MULTIVIT/MIN/PREN/FOL AC/IRON TABLET 1 TAB PO (08:19)
[2025-06-26] MEDS: DOCUSATE SODIUM 100 MG CAPSULE PO (08:20)
[2025-06-26 08:55] VITALS: BP 137/77; PULSE 99; RESP 18; TEMP 37.1; O2SAT 99
--- NOTE | 2025-06-26 09:13 | P.PNOB_ITS ---
OB - PN: Subj Subjective Date/time seen: 06/26/25 09:13 Narrative: Pain OK. Tolerating diet. Would like to go home. OB - PN: Obj Data Labs 06/25/25 03:52 Labs: Laboratory Results - last 24 hr 06/25/25 03:52 Blood Type O Negative Antibody Screen TNP Screen Negative Baby's Blood Type O pos Baby's IZABELA Negative Doses of RhIg Required 1 OB - PN A/P Plan day: 2 Comments: A: POD#2, doing well. P: Home to f/u 4 weeks. Exam 2 Narrative: AVSS ABD soft, nontender, fundus firm. Incision c/d/i. EXT nontender
[2025-06-26 12:51] VITALS: BP 136/74; PULSE 103; RESP 16; TEMP 37.3; O2SAT 98
[2025-06-28 10:26] VITALS: BP 145/80; PULSE 95; RESP 18; TEMP 36.8; O2SAT 99
== END 2025-06-26 13:04 | disposition home or self-care (01) | DRG 788 ==
LOC: ANHLDR 14:02 → ANHOB2 16:39
PROVIDERS: Admitting Provider Obstetrics & Gynecology; PCP Nurse Practitioner; Visit Provider Obstetrics & Gynecology
PROC: 10D00Z1 Extraction of Products of Conception, Low, Open Approach (ICD-10-PCS; CPT 59514; principal; 2025-06-24 13:00)
DX: O10.92 Unspecified pre-existing hypertension complicating childbirth (principal); Z37.0 Single live birth; Z3A.37 37 weeks gestation of pregnancy; Z98.1 Arthrodesis status
CPT/HCPCS: 36415; 85025; 85461; 86850; 86900; 86901; 88307; 90384; J0690; A9270; J1885; J2274; J2405; J2590; J2790; J7120

== ENCOUNTER 2025-07-23 11:36 | Outpatient (CLI) | payer OTHER, SELFPAY ==
[2025-07-23] VITALS (9 sets, daily range): BP systolic 117–135; BP diastolic 57–82; PULSE 58–89; RESP 18; TEMP 36.5; O2SAT 100
[2025-07-23 12:21] LABS: Hematocrit 38.5 % (37.0-47.0); Hemoglobin 12.2 g/dL (12.0-15.0); Immature Granulocyte Percent A 0.1 % (0-0.5); Lymphocytes Absolute Auto 1.45 K/mm3 (0.9-3.2); Mean Corpuscular HGB Conc 31.7 g/dl (32-36); Mean Corpuscular Hemoglobin 25.7 pg (26-34); Mean Corpuscular Volume 81.1 fl (80-100); Nucleated Red Blood Cells Absolute Auto 0.000 K/mm3 (0.0-0.012); Nucleated Red Blood Cells Perc 0.0 % (0.0-0.2); Platelet Count Result 242 k/mm3 (150-375); Red Blood Count 4.75 M/mm3 (4.2-5.4); White Blood Count 6.7 K/mm3 (4.5-10.0)
[2025-07-23 12:26] LABS: Add Urine Microscopic? YES; Appearance Urine Cloudy (Clear); Glucose Urine UA Negative (Negative); Leukocyte Esterase Ur Trace LEU/UL (Negative); Nitrate Urine Negative (Negative); Specific Grav Ur 1.019 (1.001-1.035)
[2025-07-23 12:32] LABS: Total Protein Urine Random < 5 mg/dL; Ur Ttl Prot Creatinine Ratio < 0.03 mg/mg (0-0.20)
[2025-07-23 12:37] LABS: Alanine Aminotransferase 20 U/L (6-35); Albumin Level 4.6 g/dL (3.5-5.1); Alkaline Phosphatase 151 U/L (38-126); Anion Gap 9 mmol/L (4-12); Aspartate Amino Transferase 25 U/L (14-36); Bilirubin,Total 0.6 mg/dL (0.2-1.3); Blood Urea Nitrogen 11 mg/dL (7-17); Calcium 9.7 mg/dL (8.4-10.2); Carbon Dioxide 26 mmol/L (22-30); Chloride 102 mmol/L (98-107); Estimated Glomerular Filt Rate > 60; Glucose 94 mg/dL (65-110); Potassium 4.1 mmol/L (3.4-5.0); Sodium 137 mmol/L (137-145); Total Protein 8.0 g/dL (6.3-8.2); Uric Acid 5.4 mg/dL (2.5-7.5)
== END 2025-07-23 13:58 | disposition home or self-care (01) ==
LOC: ANHOBOP 11:41 → ANHOBPP 07-28 10:04
PROVIDERS: Visit Provider Obstetrics & Gynecology
DX: O13.9 Gestational [pregnancy-induced] hypertension without significant proteinuria, unspecified trimester (principal); Z3A.00 Weeks of gestation of pregnancy not specified
CPT/HCPCS: 36415; 80053; 81001; 82570; 84156; 84550; 85025; 99199

== ENCOUNTER 2025-10-17 11:14 | Outpatient (CLI) | payer OTHER, SELFPAY ==
--- NOTE | ~2025-10-17 | US_ITS ---
EXAMINATION: US pelvic complete w TV, 10/17/2025 11:15 [facility] HISTORY: N93.9 - Abnormal uterine and vaginal bleeding, unspecified Comparison: None Technique: Willis-scale and color Doppler images were obtained. Findings: Uterus: Uterus anteverted 6.4 x 3.3 x 3 cm, within the lower uterine anterior body there is a complex focus measuring 1.5 x 0.6 x 1.4 cm which appears submucosal in location. . Endometrium 3 mm. Right Ovary:Right ovary 2.8 x 1.2 x 1.8 cm, no adnexal mass, normal flow. Left Ovary: Left ovary 2.3 x 1.0 x 1.4 cm, no adnexal mass, normal flow. Free Fluid: None Impression: 1. Nonspecific complex submucosal lesion possibly a submucosal fibroid however the appearance is atypical. Contrast-enhanced MRI is recommended Reviewed, dictated and finalized at location P. [facility] Impression: 1. Nonspecific complex submucosal lesion possibly a submucosal fibroid however the appearance is atypical. Contrast-enhanced MRI is recommended
== END 2025-10-17 11:15 | disposition home or self-care (01) ==
LOC: MICIMG 11:14
PROVIDERS: PCP Obstetrics & Gynecology; Visit Provider Obstetrics & Gynecology
DX: N93.9 Abnormal uterine and vaginal bleeding, unspecified (principal)
CPT/HCPCS: 76830; 76856

== ENCOUNTER 2025-10-28 02:39 | Day surgery (SDC) | payer OTHER, SELFPAY ==
--- NOTE | 2025-10-24 12:48 | PC.NURSE ---
[facility] has started construction of its new state of the art ER which will open Spring 2026. With this, we anticipate parking may be a challenge for some our surgical patients and families. Parking spaces are limited but are available for all Surgical, obstetrics, and ER patients sharing this lot. If you arrive and find you are having a hard time finding a parking space, please note that we understand the challenges, please drive around the hospital and park near Hospital Entrance 1. When you enter this entrance, you can ask a volunteer to direct or take you back to the surgical waiting area to check in. We appreciate everyone?s understanding of these expected challenges while we build for your future. Report to the Outpatient Waiting Room, entrance under the green pavilion located off [address], at time 1130 on date _10/28/25. Planned Procedure Time: 1330_.? Time changes happen often and if your time is changed the preop area will call you the afternoon before. - You and your visitor will be asked to self-screen and do not enter if you have any COVID symptoms. Please call surgeon if you need to reschedule. - A mask is optional within the hospital at this time. Patients may have clear liquids (water, carbonated beverages, clear teas, apple juice) until 3 hours prior to surgery with a maximum of 20 ounces. - No food from midnight until time of surgery and no smoking, or chewing tobacco (or any form of nicotine). No chewing gum, candy or mints. - Take only the following medications with a SIP of water on the morning of surgery: NONE DO NOT STOP ANY OF YOUR OTHER PRESCRIPTION MEDICATIONS PRIOR TO SURGERY EXCEPT THE FOLLOWING Hold all vitamins and supplements for 3 days per anesthesiologist. Medications to discontinue per physician Date to take last dose Please no make-up, nail turkish, hairspray, perfume, deodorant, or body powder the day of surgery.? No jewelry (including any body piercings) or valuables the day of surgery, leave them at home.? Please take a shower or bath the night before, or the morning of, surgery with an antibacterial soap.? Wear comfortable, loose fitting clothing.? Children are encouraged to wear pajamas. - Jewelry must be removed prior to entering the operating room.? Rings and piercings that are not removed may be cut off. - The hospital will not accept responsibility for valuables.? - Please leave all valuables, including medications, at home the day of surgery. If you are going home after surgery, a licensed piledriver carpenter must drive you home.? - NO public transportation without another adult if you receive anesthesia. - We recommend that an adult stay with you for 24 hours following discharge. - We also recommend that you do not drive, make important decision, drink alcoholic beverages, or take any drugs that were not prescribed by your health care provider for at least 24 hours after your discharge time. For Pediatric surgeries, we recommend two adults accompany the child home. Follow any additional instructions given to you from your surgeon. Telephone instructions given to __PATIENT___and asked if any additional questions and then verbalized understanding. Patient advised to call surgeon office or pre surgery nurse liaison [phone] if any additional questions.
[2025-10-28 12:10] VITALS: BP 138/84; PULSE 79; RESP 14; TEMP 36.4; O2SAT 98; BMI 29.5
[2025-10-28] MEDS: LACTATED RINGERS 1,000 ML 30 ML IV CONT (12:10)
[2025-10-28 12:13] LABS: BEDSIDEPREGUCG Negative (Negative)
[2025-10-28] MEDS: ACETAMINOPHEN 500 MG TABLET 1000 MG PO (12:13)
--- NOTE | 2025-10-28 13:02 | WPDANESEPPF ---
Anes - Initial Pre Proc Eval Procedure: Operation Date: 10/28/25 13:30 Proposed Procedures p Hysteroscopy Dilation and Curettage with Removal of any Endometrial Lesions if Needed, Intrauterine Device Insertion - Boo Liao MD Date/Time: 10/28/25 13:02 Surgeon: Boo Liao MD Pre Op Diagnosis: abn uterine lining ultsoud,excessive bleeding Patient Data Age: 25 Gender: F Height: 1.65 m Weight: 80.6 kg Last Vital Signs Temp 36.4 C L 10/28/25 12:10 Pulse 79 10/28/25 12:10 Resp 14 10/28/25 12:10 BP 138/84 10/28/25 12:10 Pulse Ox 98 10/28/25 12:10 Allergies Allergy/AdvReac Type Severity Reaction Status Date / Time No Known Allergies Allergy Unknown Verified 10/28/25 11:53 Home Medications ?Medication ?Instructions ?Recorded ?Confirmed ?Type omeprazole 20 mg capsule,delayed 20 mg PO DAILY 08/05/25 10/24/25 History release fluoxetine 40 mg capsule 40 mg PO DAILY #30 caps 08/06/25 10/24/25 Rx nifedipine 30 mg tablet,extended See Rx Instructions .Route 08/27/25 10/24/25 Rx release .COMPLEX #90 tabs norgestimate-ethinyl estradiol 1 tablet PO DAILY #84 tabs 09/24/25 10/24/25 Rx 0.18mg/0.215mg/0.25mg-0.035mg(28)tablet Laboratory Tests 10/28/25 12:10 POC Urine HCG, Qual Negative (Negative) Patient hx anesthesia problems: none Family hx anesthesia problems: none Results Review: All pre-operative results and documents have been reviewed as part of the pre-operative evaluation. [facility] Past Medical History Medical History (Updated 10/28/25 @ 08:34 by Chris Sarah DO) GERD (gastroesophageal reflux disease) Hypertension Closed dislocation of right patella Anxiety Depression Irregular heart beat Surgical History Surgical History (Updated 10/28/25 @ 08:34 by Chris Sarah DO) Hx of section History of spinal fusion T12-L4 Family History Family History Father Hypertension Mother Hypertension Grandparent Hypertension Social History Social History Smoking status: Never smoker Second hand tobacco smoke exposure: No Alcohol intake: never Substance use: never Lack of Transportation: No Lack of Food: Never True Current Housing: I Have Housing Concerned About Future Housing: No Difficulty Paying Gas/Electric Bills: No Difficulty Paying for Meds: No Currently Unemployed: No Education: Associate Degree Difficulty w/ Childcare or Family Care: No Spiritual care concerns: No Anes - Eval Final PreProcedure Day of Procedure 10/28/25 13:02 Patient weight: overweight Heart: regular rate and rhythm Lungs: clear to auscultation Airway: Mallampati scale class II Neurological: alert and oriented Last oral intake: >/= 8 hours ASA classification: II Emergent: no Anesthetic plan: proceed Anesthesia type and monitoring: general GIVS and standard monitoring Results Review: All pre-operative results and documents have been reviewed as part of the pre-operative evaluation. Informed Consent: The patient's anesthetic plan and its attendant risks and benefits were discussed with the patient/family/POA. Questions were solicited and answers provided to the satisfaction of the patient/family/POA.
--- NOTE | 2025-10-28 13:34 | PM.IMHP2 ---
H&P: HPI History of Present Illness Date/Time: 10/28/25 13:34 Chief Complaint: Heavy bleeding Narrative: 25 y/o who has been taking a combined contraceptive. She has begun to have heavy, irregular bleeding. Ultrasound exam suggests a 1.5 cm mass just at the endometrial complex. Because her bleeding has been persistent and heavy, I have offered hysteroscopy with dilation and sharp curetttage. She is also interested in placement of a progestin containing IUD. Review of Systems Review of Systems: All systems reviewed & are unremarkable except as noted in HPI and below PMFSH Past Medical History Medical History (Updated 10/28/25 @ 13:38 by Boo Liao MD) Contraception management GERD (gastroesophageal reflux disease) Hypertension Closed dislocation of right patella Anxiety Depression Irregular heart beat Surgical History Surgical History Hx of section History of spinal fusion T12-L4 Family History Family History Father Hypertension Mother Hypertension Grandparent Hypertension Social History Social History Smoking status: Never smoker Second hand tobacco smoke exposure: No Alcohol intake: never Substance use: never Lack of Transportation: No Lack of Food: Never True Current Housing: I Have Housing Concerned About Future Housing: No Difficulty Paying Gas/Electric Bills: No Difficulty Paying for Meds: No Currently Unemployed: No Education: Associate Degree Difficulty w/ Childcare or Family Care: No Spiritual care concerns: No Meds Home Medications and Allergies Home Medications ?Medication ?Instructions ?Recorded ?Confirmed ?Type omeprazole 20 mg capsule,delayed 20 mg PO DAILY 08/05/25 10/24/25 History release fluoxetine 40 mg capsule 40 mg PO DAILY #30 caps 08/06/25 10/24/25 Rx nifedipine 30 mg tablet,extended See Rx Instructions .Route 08/27/25 10/24/25 Rx release .COMPLEX #90 tabs norgestimate-ethinyl estradiol 1 tablet PO DAILY #84 tabs 09/24/25 10/24/25 Rx 0.18mg/0.215mg/0.25mg-0.035mg(28)tablet Allergies Allergy/AdvReac Type Severity Reaction Status Date / Time No Known Allergies Allergy Unknown Verified 10/28/25 11:53 Vital Signs Vital Signs - 24 hr 10/28/25 12:10 Temperature 97.5 F L Pulse Rate 79 Respiratory Rate 14 Blood Pressure 138/84 Pulse Oximetry 98 Exam Const: Orientation/consciousness: patient oriented x3 Other: Well-developed, well-nourished female in no acute distress. Neck: Thyroid: thyroid normal Lymphatic: no lymphadenopathy noted (in neck, axilla or inguinal nodes) Resp: Effort & Inspection: normal respiratory effort Auscultation: clear to auscultation bilaterally Cardio: Rate: regular rate Rhythm: regular rhythm Heart sounds: S1 normal heart sound present and S2 normal heart sound present GI: Other: ABD: Soft, nontender, nondistended. No guarding or rebound tenderness. No hepatosplenomegaly. : General: Yes no CVA tenderness Other: External genitalia: normal female hair distribution, without lesion. Urethral meatus: no lesion, non prolapsed. Bladder: no mass, nontender Vagina: well-estrogenized, without lesion or discharge. No cystocele or rectocele. Cervix: no lesion or discharge. Uterus: small, anteverted, freely mobile, nontender Adnexa: no mass or tenderness. Anus/perineum: no lesions, nontender Back/Spine/Pelvis: Back: no CVA tenderness Skin: General skin exam: normal color and no rashes or lesions noted Neuro: General: patient oriented x3 Extrem: Other: Extremities: nontender with no edema Psych: Mental Status: mental status grossly normal Affect: normal affect Assessment and Plan Assessment and plan (1) Menometrorrhagia: Code(s): N92.1 - Excessive and frequent menstruation with irregular cycle Status: Acute Assessment and Plan: A: Menometrorrhagia with an abnormal pelvic ultrasound. She is also interested in a progestin containing IUD for contraception and to help control bleeding. P: Because of the length and heaviness of her bleeding, and because of the abnormal ultrasound exam, I have offered hysteroscopy with D&C. She would also like placement of Mirena IUD as well. She understands risks of surgery to include risks of anesthesia, risks of pain, infection, bleeding, blood products, thromboembolic phenomena and damage to adjacent structures such as bowel, bladder, ureters, blood vessels and nerves. She understands all these risks and elects to proceed with surgery. (2) Abnormal pelvic ultrasound: Code(s): R93.89 - Abnormal findings on diagnostic imaging of other specified body structures Status: Acute (3) Contraception management: Qualifiers: Contraceptive encounter type: surveillance Contraceptive type: pill Qualified Code(s): Z30.41 - Encounter for surveillance of contraceptive pills Code(s): Z30.9 - Encounter for contraceptive management, unspecified Status: Acute
--- NOTE | 2025-10-28 14:09 | S_PTH ---
PATIENT: Yanira Ochoa LOC: [facility] U#:[id number] AGE/SX: 25/F ROOM: RE10/28/[address]: Boo Liao MD : 2000 BED: DIS: 10/28/2025 SPEC #: [id number] RECD: 10/29/25 08:32 STATUS: ALONSO REQ #: [id number] ALEJANDRA: 10/28/25 14:[address]: Boo Liao DEPT: [facility] Surgical RECD BY: Patricia Quintana MLT, ([facility]) ENTERED: 10/29/25 08:32 SP TYPE: Surgical OTHR DR: Jennifer Victoria, MATERIAL COMBINER Tissues: A - Endometrial Curettings Procedures: Hematoxylin and Eosin Stain Gross and Microscopic Level 4
[2025-10-28] MEDS: LIDOCAINE 1% LOCAL INJ 10 ML VIAL INFILTRATE (14:16)
[2025-10-28] MEDS: KETOROLAC 30 MG/ML VIAL (*BKC) IV PUSH (14:16)
--- NOTE | 2025-10-28 14:20 | W.PM.PROC2 ---
Procedure Note - Detailed Date of Procedure 10/28/25 Pre-op Diagnosis Menometrorrhagia Abnormal pelvic ultrasound Contraception Post-op Diagnosis Same Procedure Performed Hysteroscopy Dilation and sharp curettage Placement of Mirena IUD Surgeon Boo Liao MD Anesthesia MAC and Local (1% lidocaine) Findings Thick endometrium with possible polyps. Both tubal ostia seen. At the time of sharp curettage, the texture of the anterior lower fundus suggests a possible submucous myoma. Description of Procedure The patient was taken to the operating room where she was prepared and draped in the usual sterile fashion in the dorsal lithotomy position. The bladder was drained with a red rubber catheter. A sterile speculum was placed into the vagina. The anterior lip of the cervix was grasped with single-tooth tenaculum. Ten mL of 1% lidocaine was administered in a paracervical block. The cervix was then gently dilated using Hegar dilators until a 6 mm dilator could be passed. Hysteroscopy was performed using sterile saline as a distention medium. Findings are as noted above. The Aveta resector was advanced, and the possible endometrial polyps were shaved until flush with the endometium. Sharp curettage was then performed, and endometrial curettings were collected on a Telfa pad and passed off to be sent to pathology. Hemostasis was excellent. The Mirena IUD was then loaded and advanced into the endometrial cavity, sounding the uterus to a depth of 8 cm. The introducer was withdrawn 1.5 cm and the IUD arms were deployed. The IUD was then gently nestled into the fundal position. The introducer was withdrawn and the strings were trimmed to 2.5 cm. The tenaculum was removed. Sponge, lap, needle and instrument counts were correct. The patient was awakened and taken to the recovery room in stable condition. I was present and scrubbed through the entire procedure. Implants Mirena IUD: Lot#[id number] Exp: 06/2027 S/N [id number] Estimated Blood Loss 10 Drains No Packing No Pathology Yes (Endometrial curettings) Complications None Condition Stable Disposition PACU [facility] Billing Surgery - Charge Forward: Surgery Billing
[2025-10-28 14:24] VITALS: BP 137/94; PULSE 83; RESP 18; O2SAT 100
--- NOTE | 2025-10-28 14:41 | WPDHPUPDATE1 ---
History and Physical Update Update Date/Time: 10/28/25 14:41 History and Physical has been reviewed, including an updated exam of the patient. There are NO changes in the patient's condition. Risks, benefits, and alternatives have been discussed and questions answered. Patient agrees to proceed with procedure.
[2025-10-28 14:50] VITALS: BP 130/72; PULSE 63; RESP 20
[2025-10-28 15:15] VITALS: BP 133/60; PULSE 77; RESP 20
== END 2025-10-28 15:20 | disposition home or self-care (01) ==
PROVIDERS: Anesthesiology; PCP Nurse Practitioner; Visit Provider Obstetrics & Gynecology
PROC: 0U5B8ZZ Destruction of Endometrium, Via Natural or Artificial Opening Endoscopic (ICD-10-PCS; CPT 58563; principal; 2025-10-28 13:30)
DX: R93.89 Abnormal findings on diagnostic imaging of other specified body structures (principal); K21.9 Gastro-esophageal reflux disease without esophagitis; I10 Essential (primary) hypertension; F41.9 Anxiety disorder, unspecified; F32.A Depression, unspecified; I49.9 Cardiac arrhythmia, unspecified; Z98.890 Other specified postprocedural states; Z98.1 Arthrodesis status
CPT/HCPCS: 58558; 58300; 88305; A9270; J1885; J2003; J2250; J2704; J3010; J7120

== ENCOUNTER 2025-10-31 14:53 | Outpatient (CLI) | payer OTHER, SELFPAY ==
[2025-10-31 16:33] LABS: Beta HCG Quantitative < 2.39 mIU/ML
== END 2025-10-31 14:54 | disposition home or self-care (01) ==
PROVIDERS: PCP Nurse Practitioner; Visit Provider Obstetrics & Gynecology
DX: N92.6 Irregular menstruation, unspecified (principal)
CPT/HCPCS: 36415; 84702